=== PATIENT | female | born 1930 | race Caucasian/White ===

== ENCOUNTER → 2016-07-01 | Outpatient (CLI) | payer MEDICARE, BC ==
[~2016-07-01] MED LIST: AMBIEN 10MG10 MG PO; AMBIEN10 MG PO; AMIODARONE PO; ASPIR-LOW81 MG PO; ASPIRIN 81M81 MG/TA2 PO; ATIVAN 0.50.5 MG/TAB PO; ATIVAN0.5 MG PO; CARDIZEM CD180 MG PO; CARTIA XT120 MG PO; CEPHALEXIN500 M1 PO; COMBIVENT INH14.7 GM IH; CORDARONE200 MG PO; CORDARONE200 MG/TAB PO; ELIQUIS 5MG PO; LEXAPRO 10MG10 MG PO; LINZESS145CAP PO; LORTAB 5/500 501 TAB PO; MACROBID100 MG PO; MIRTAZAPINE15 M1 PO; MOTRIN 200200 MG/TAB PO; MULTAQ400 MG PO; NITROSTAT0.4 MG/TAB SL; NO HOME MEDICATIONS; PACERONE200 MG PO; PRISTIQ50 MG PO; REMERON15 MG PO; SPIRIVA INH IH; STOOL SOFTENER100 M2 PO; THEO-DUR200 MG PO; THEODUR 200MG; THEOPHYLLINE PO; TYLENOL 325MG325 MG PO; TYLENOL 500MG500 MG PO; ZOLOFT 50MG50 MG PO; ZOLPIDEM10 MG PO
[2016-07-01 10:39] LABS: MEAN CELL VOLUME 93 fl (80.0-100.0); MEAN CORPUSCULAR HGB CONC 30 g/dl (33.0-37.0); MEAN PLATELET VOLUME 11.1 fl (7.4-10.4); PLATELET COUNT 251 K/mm3 (130-400); RED BLOOD COUNT 3.69 M/mm3 (4.10-5.30); REDCELL DISTRIBUTION WIDTH-CV 15.8 % (11.5-14.5); WHITE BLOOD COUNT 5.9 K/mm3 (4.8-10.8)
[2016-07-01 10:50] LABS: HEMATOCRIT 34.2 % (37.0-47.0); HEMOGLOBIN 10.2 g/dl (12.5-16.0); MEAN CORPUSCULAR HEMOGLOBIN 28 pg (27.0-31.0)
== END ==
LOC: COL.LAB 09:54
PROVIDERS: Internal Medicine Interventional Cardiology
DX: K92.1 Melena (principal)

== ENCOUNTER → 2016-07-06 | Outpatient (CLI) | payer MEDICARE, BC ==
[2016-07-06 15:24] LABS: MEAN CELL VOLUME 93 fl (80.0-100.0); MEAN CORPUSCULAR HGB CONC 29 g/dl (33.0-37.0); MEAN PLATELET VOLUME 10.8 fl (7.4-10.4); PLATELET COUNT 283 K/mm3 (130-400); RED BLOOD COUNT 3.43 M/mm3 (4.10-5.30); REDCELL DISTRIBUTION WIDTH-CV 15.8 % (11.5-14.5); WHITE BLOOD COUNT 4.9 K/mm3 (4.8-10.8)
[2016-07-06 15:37] LABS: HEMOGLOBIN 9.4 g/dl (12.5-16.0); MEAN CORPUSCULAR HEMOGLOBIN 27 pg (27.0-31.0)
== END ==
LOC: COL.LAB 15:03
PROVIDERS: Internal Medicine Interventional Cardiology
DX: K92.1 Melena (principal)

== ENCOUNTER 2016-07-23 08:15 | Outpatient (CLI) | payer MEDICARE, BC ==
[~2016-07-23] VITALS: Ht 162.6 cm; Wt 55.5 kg
[2016-07-23] VITALS (11 sets, daily range): BP systolic 92–138; BP diastolic 52–97; PULSE 51–80; TEMP 97.5–98.6
[~2016-07-23 08:15] MED LIST changes: -CARTIA XT120 MG PO; -CORDARONE200 MG/TAB PO; -ELIQUIS 5MG PO; -LINZESS145CAP PO; -STOOL SOFTENER100 M2 PO; -TYLENOL 500MG500 MG PO; -ZOLOFT 50MG50 MG PO
[2016-07-23 08:44] LABS: MEAN CELL VOLUME 88 fl (80.0-100.0); MEAN CORPUSCULAR HGB CONC 29 g/dl (33.0-37.0); MEAN PLATELET VOLUME 11.4 fl (7.4-10.4); PLATELET COUNT 187 K/mm3 (130-400); REDCELL DISTRIBUTION WIDTH-CV 15.3 % (11.5-14.5); WHITE BLOOD COUNT 4.3 K/mm3 (4.8-10.8)
[2016-07-23 08:47] LABS: HEMATOCRIT 27.3 % (37.0-47.0); INR 1.3 (0.8-3.0); MEAN CORPUSCULAR HEMOGLOBIN 26 pg (27.0-31.0); PROTHROMBIN TIME 14.2 SECONDS (9.7-12.8)
[2016-07-23 08:52] LABS: CALCIUM 8.8 mg/dL (8.4-10.2); CREATININE, serum 0.6 mg/dL (0.52-1.25)
[2016-07-23] MEDS ORDERED: LINZESS145CAP PO (08:59)
[2016-07-23] MEDS ORDERED: CARTIA XT120 MG PO (09:01)
[2016-07-23] MEDS ORDERED: ZOLOFT 50MG50 MG PO (09:01)
[2016-07-23] MEDS ORDERED: ELIQUIS 5MG PO (09:01)
[2016-07-23] MEDS ORDERED: ATIVAN 0.50.5 MG/TAB PO (09:02)
[2016-07-23] MEDS ORDERED: TYLENOL 500MG500 MG PO (09:03)
[2016-07-23] MEDS ORDERED: STOOL SOFTENER100 M2 PO (09:03)
[2016-07-24 05:03] VITALS: BP 109/49; PULSE 66; TEMP 97.6
[2016-07-24 07:50] LABS: MEAN CELL VOLUME 89 fl (80.0-100.0); MEAN CORPUSCULAR HGB CONC 29 g/dl (33.0-37.0); PLATELET COUNT 170 K/mm3 (130-400); RED BLOOD COUNT 3.01 M/mm3 (4.10-5.30); REDCELL DISTRIBUTION WIDTH-CV 15.2 % (11.5-14.5); WHITE BLOOD COUNT 4.6 K/mm3 (4.8-10.8)
[2016-07-24 07:51] LABS: HEMATOCRIT 26.9 % (37.0-47.0); HEMOGLOBIN 7.8 g/dl (12.5-16.0); MEAN CORPUSCULAR HEMOGLOBIN 26 pg (27.0-31.0)
[2016-07-24 08:38] VITALS: BP 130/65; PULSE 65; TEMP 98.4
== END 2016-07-24 11:25 | disposition home or self-care (01) ==
LOC: EUO 08:15 → COL.RAD 08:30 → MEDICAL 13:33 → EUO 07-24 11:25
PROVIDERS: Internal Medicine Interventional Cardiology
DX: Z45.09 Encounter for adjustment and management of other cardiac device (principal); I48.91 Unspecified atrial fibrillation; R94.31 Abnormal electrocardiogram [ECG] [EKG]
CPT/HCPCS: OP; C1764; J2250; J3010; J7040

== ENCOUNTER → 2016-09-20 | Outpatient (CLI) | payer MEDICARE, BC ==
[~2016-09-20] MED LIST changes: +CARTIA XT120 MG PO; +CORDARONE200 MG/TAB PO; +ELIQUIS 5MG PO; +LINZESS145CAP PO; +STOOL SOFTENER100 M2 PO; +TYLENOL 500MG500 MG PO; +ZOLOFT 50MG50 MG PO
[2016-09-20 12:14] LABS: MEAN CELL VOLUME 78 fl (80.0-100.0); MEAN CORPUSCULAR HGB CONC 27 g/dl (33.0-37.0); MEAN PLATELET VOLUME 11.1 fl (7.4-10.4); PLATELET COUNT 267 K/mm3 (130-400); RED BLOOD COUNT 3.58 M/mm3 (4.10-5.30); REDCELL DISTRIBUTION WIDTH-CV 17.2 % (11.5-14.5); WHITE BLOOD COUNT 5.3 K/mm3 (4.8-10.8)
[2016-09-20 12:23] LABS: HEMOGLOBIN 7.5 g/dl (12.5-16.0); MEAN CORPUSCULAR HEMOGLOBIN 21 pg (27.0-31.0)
== END ==
LOC: COL.LAB 11:29
PROVIDERS: Internal Medicine Interventional Cardiology
DX: K92.1 Melena (principal)

== ENCOUNTER 2016-10-05 10:30 | Outpatient (RCR) | payer MEDICARE, BC ==
[2016-10-05] VITALS (9 sets, daily range): BP systolic 131–146; BP diastolic 58–81; PULSE 64–70; TEMP 97.6–98.3
[~2016-10-05 10:30] MED LIST changes: -CORDARONE200 MG/TAB PO
[2016-10-05] MEDS ORDERED: CORDARONE200 MG/TAB PO (11:33)
== END 2016-10-05 15:46 | disposition home or self-care (01) ==
LOC: EUO 10:30
DX: K92.2 Gastrointestinal hemorrhage, unspecified (principal); D50.0 Iron deficiency anemia secondary to blood loss (chronic)
CPT/HCPCS: J7050; P9016

== ENCOUNTER → 2016-11-22 | Outpatient (CLI) | payer MEDICARE, BC ==
[~2016-11-22] MED LIST changes: +CORDARONE200 MG/TAB PO
== END ==
LOC: BHSO 10:53
DX: F41.1 Generalized anxiety disorder (principal)

== ENCOUNTER → 2016-12-14 | Outpatient (CLI) | payer MEDICARE, BC | LOC: COL.RAD 13:07 | DX: K52.9 Noninfective gastroenteritis and colitis, unspecified (principal); K80.20 Calculus of gallbladder without cholecystitis without obstruction; K44.9 Diaphragmatic hernia without obstruction or gangrene | CPT/HCPCS: Q9967 ==

== ENCOUNTER → 2017-02-22 | Outpatient (CLI) | payer MEDICARE, BC ==
[~2017-02-22] MED LIST changes: +CLEOCIN HCL300 MG PO; +INCRUSE EL62.5 MCG/A IH; +INCRUSE EL62.5 MCG/A INH; +IPRATROPIUM BROM3 M1 IH; +MIRALAX PA17 GM/Dose PO; +NORCO 325 MG-51 TAB PO; +PERFOROMIS20 MCG/2 M IH; +PERFOROMIS20 MCG/2 M INH; +PREDNISONE20 MG PO; +PRILOSEC 20MG20 MG PO; +PULMICORT R1 MG/2 ML IH; +PULMICORT0.5 MG/2 M IH; +REMERON 15M15 MG/TA1 PO; +SENNO8.6 MG PO; +THEO-24 30300 MG/CAP PO
== END ==
LOC: BHSO 11:09
DX: F33.1 Major depressive disorder, recurrent, moderate (principal)

== ENCOUNTER 2017-03-25 15:38 | Outpatient (RCR) | payer MEDICARE, BC ==
[~2017-03-25 15:38] MED LIST changes: -CLEOCIN HCL300 MG PO; -INCRUSE EL62.5 MCG/A IH; -INCRUSE EL62.5 MCG/A INH; -IPRATROPIUM BROM3 M1 IH; -MIRALAX PA17 GM/Dose PO; -NORCO 325 MG-51 TAB PO; -PERFOROMIS20 MCG/2 M IH; -PERFOROMIS20 MCG/2 M INH; -PREDNISONE20 MG PO; -PRILOSEC 20MG20 MG PO; -PULMICORT R1 MG/2 ML IH; -PULMICORT0.5 MG/2 M IH; -REMERON 15M15 MG/TA1 PO; -SENNO8.6 MG PO; -THEO-24 30300 MG/CAP PO
[2017-03-26] VITALS (9 sets, daily range): BP systolic 106–124; BP diastolic 39–56; PULSE 61–73; TEMP 98.1–98.7
== END 2017-03-26 14:26 | disposition home or self-care (01) ==
LOC: MEDICAL 15:38 → EUO 15:38 → MEDICAL 03-26 08:37 → EUO 03-26 14:26
DX: K92.2 Gastrointestinal hemorrhage, unspecified (principal); D64.9 Anemia, unspecified
CPT/HCPCS: OP; J7050; P9016

== ENCOUNTER → 2017-05-23 | Outpatient (CLI) | payer MEDICARE, BC | LOC: BHSO 10:54 | DX: F33.1 Major depressive disorder, recurrent, moderate (principal) ==

== ENCOUNTER 2017-07-18 07:27 | Outpatient (RCR) | payer MEDICARE, BC ==
[~2017-07-18] VITALS: Ht 162.6 cm; Wt 58.1 kg
[2017-07-18 10:06] VITALS: BP 106/49; PULSE 67; TEMP 98.5
[2017-07-18 10:21] VITALS: BP 117/55; PULSE 69; TEMP 98.8
[2017-07-18 10:51] VITALS: BP 116/53; PULSE 64; TEMP 98.7
[2017-07-18 11:51] VITALS: BP 126/57; PULSE 61; TEMP 99.2
== END 2017-07-18 12:10 | disposition home or self-care (01) ==
LOC: EUO 07:27
DX: D64.9 Anemia, unspecified (principal)
CPT/HCPCS: J7050; P9016

== ENCOUNTER 2017-11-07 10:12 | Emergency (ER) | payer MEDICARE, BC ==
[~2017-11-07] VITALS: Ht 157.5 cm; Wt 57.3 kg
[~2017-11-07 10:12] MED LIST changes: +CLEOCIN HCL300 MG PO; +INCRUSE EL62.5 MCG/A IH; +IPRATROPIUM BROM3 M1 IH; +NORCO 325 MG-51 TAB PO; +PERFOROMIS20 MCG/2 M IH; +PREDNISONE20 MG PO; +PULMICORT R1 MG/2 ML IH; +REMERON 15M15 MG/TA1 PO; +SENNO8.6 MG PO
[2017-11-07 10:17] VITALS: TEMP 97.1
[2017-11-07 10:38] LABS: BASO % 0.3 % (0.0-2.0); GRAN # 8.6 (1.4-6.5); GRAN % 84.6 % (42.2-75.2); LYMPH # 0.6 (1.2-3.4); LYMPH % 6.1 % (20.0-51.0); MEAN CELL VOLUME 82 fl (80.0-100.0); MEAN CORPUSCULAR HGB CONC 27 g/dl (33.0-37.0); MEAN PLATELET VOLUME 9.9 fl (7.4-10.4); MONO # 0.8 (0.1-0.6); MONO % 8.1 % (1.7-9.3); PLATELET COUNT 253 K/mm3 (130-400); RED BLOOD COUNT 3.85 M/mm3 (4.10-5.30); REDCELL DISTRIBUTION WIDTH-CV 21.7 % (11.5-14.5)
[2017-11-07 10:39] LABS: HEMATOCRIT 31.4 % (37.0-47.0); HEMOGLOBIN 8.5 g/dl (12.5-16.0); MEAN CORPUSCULAR HEMOGLOBIN 22 pg (27.0-31.0)
[2017-11-07 10:42] LABS: PROTHROMBIN TIME 10.8 SECONDS (9.7-12.8)
[2017-11-07 10:44] LABS: PARTIAL THROMBOPLASTIN TIME 30.5 SECONDS (26.0-37.0)
[2017-11-07 10:56] LABS: ALANINE AMINOTRANSFERASE 24 U/L (9-52); ALBUMIN 3.3 gm/dL (3.5-5.0); ALKALINE PHOSPHATASE 91 U/L (50-136); ANION GAP 10 mmol/L (7-16); AST,SGOT 20 U/L (15-37); BILIRUBIN,TOTAL 0.5 mg/dL (0.0-1.0); BLOOD UREA NITROGEN 10 mg/dL (7-17); CALCIUM 8.7 mg/dL (8.4-10.2); CARBON DIOXIDE 32 mmol/L (22-30); CHLORIDE 96 mmol/L (98-107); CREATININE, serum 0.52 mg/dL (0.52-1.25); GLUCOSE 116 mg/dL (74-106); POTASSIUM 3.9 mmol/L (3.4-5.0); SODIUM 139 mmol/L (137-145); TOTAL PROTEIN 6.5 gm/dL (6.4-8.2)
[2017-11-07 11:00] LABS: TROPONIN-I < 0.012 ng/mL (0.000-0.034)
[2017-11-07] MEDS ORDERED: INCRUSE EL62.5 MCG/A IH (11:09)
[2017-11-07] MEDS ORDERED: PULMICORT0.5 MG/2 M IH (11:15)
[2017-11-07 13:46] VITALS: BP 109/62; PULSE 81
== END 2017-11-07 13:48 | disposition home or self-care (01) ==
LOC: COL.ER 10:12
PROVIDERS: Emergency Medicine
DX: I48.91 Unspecified atrial fibrillation (principal); J44.9 Chronic obstructive pulmonary disease, unspecified; D64.9 Anemia, unspecified; R91.8 Other nonspecific abnormal finding of lung field; M54.5 Low back pain
CPT/HCPCS: J1940; J7030

== ENCOUNTER → 2017-11-09 | Outpatient (CLI) | payer MEDICARE, BC ==
[~2017-11-09] MED LIST changes: +PULMICORT0.5 MG/2 M IH
== END ==
LOC: COL.VAS 10:30
DX: M79.89 Other specified soft tissue disorders (principal)

== ENCOUNTER → 2017-11-16 | Outpatient (CLI) | payer MEDICARE, BC ==
[2017-11-16 11:45] LABS: ARTERIAL BLD GAS O2 SATURATION 94.5 % (92-100); ARTERIAL BLD GAS TCO2 CT 33.4; ARTERIAL BLOOD GAS BASE EXCESS 7.6 (-2-2); ARTERIAL BLOOD GAS PCO2 44.7 mmHg (35-45); ARTERIAL BLOOD GAS PO2 70.5 mmHg (80-100); ARTERIAL BLOOD GAS pH 7.47 (7.35-7.45)
== END ==
LOC: COL.PUL 11:20
PROVIDERS: Internal Medicine Pulmonary Disease
DX: R06.02 Shortness of breath (principal)

== ENCOUNTER 2017-12-19 12:32 | Inpatient (IN) | payer MEDICARE, BC ==
[2017-12-19] VITALS (190 sets, daily range): BP systolic 79–99; BP diastolic 32–56; PULSE 78–97; TEMP 98.7–99.7; O2SAT 58–99
[~2017-12-19] VITALS: Ht 157.5 cm; Wt 59.2 kg
[2017-12-19] MEDS ORDERED: MIRALAX PA17 GM/Dose PO (13:03)
[2017-12-19 13:04] LABS: MEAN CELL VOLUME 80 fl (80.0-100.0); MEAN CORPUSCULAR HGB CONC 26 g/dl (33.0-37.0); MEAN PLATELET VOLUME 9.5 fl (7.4-10.4); PLATELET COUNT 291 K/mm3 (130-400); RED BLOOD COUNT 3.59 M/mm3 (4.10-5.30); REDCELL DISTRIBUTION WIDTH-CV 18.6 % (11.5-14.5)
[2017-12-19] MEDS ORDERED: PERFOROMIS20 MCG/2 M INH (13:04)
[2017-12-19] MEDS ORDERED: INCRUSE EL62.5 MCG/A INH (13:05)
[2017-12-19 13:07] LABS: HEMATOCRIT 28.8 % (37.0-47.0); HEMOGLOBIN 7.6 g/dl (12.5-16.0); MEAN CORPUSCULAR HEMOGLOBIN 21 pg (27.0-31.0)
[2017-12-19] MEDS ORDERED: THEO-24 30300 MG/CAP PO (13:08)
[2017-12-19] MEDS ORDERED: PRILOSEC 20MG20 MG PO (13:08)
[2017-12-19 13:11] LABS: ARTERIAL BLD GAS O2 SATURATION 84.5 % (92-100); ARTERIAL BLD GAS TCO2 CT 29.4; ARTERIAL BLOOD GAS BASE EXCESS 2.7 (-2-2); ARTERIAL BLOOD GAS PCO2 46.8 mmHg (35-45); ARTERIAL BLOOD GAS pH 7.39 (7.35-7.45)
[2017-12-19 13:12] LABS: ARTERIAL BLOOD GAS PO2 48.3 mmHg (80-100)
[2017-12-19 13:15] LABS: ALBUMIN 2.8 gm/dL (3.5-5.0); BILIRUBIN,TOTAL 0.9 mg/dL (0.0-1.0); CREATININE, serum 0.78 mg/dL (0.52-1.25); TOTAL PROTEIN 5.4 gm/dL (6.4-8.2)
[2017-12-19 13:40] LABS: BAND 19 % (0-10); LYMPHOCYTE 3 % (20.0-51.0); NEUTROPHILS 77 % (42.0-75.2)
[2017-12-19 13:41] LABS: COLLECTION METHOD CLEAN CATCH
[2017-12-19 13:45] LABS: HYPOCHROMIA 3+; POLYCHROMASIA 1+
[2017-12-19 13:46] LABS: MICROCYTOSIS 1+
[2017-12-19 14:01] LABS: HYALINE CAST >12 /lpf; MUCOUS Present /lpf; PH 7 (5-8); SQUAMOUS EPITHELIAL None Seen /hpf; URINE APPEARANCE Clear; URINE BACTERIA Rare /hpf; URINE BILIRUBIN Negative (NEGATIVE); URINE BLOOD 2+ (NEGATIVE); URINE COLOR Yellow; URINE GLUCOSE Negative (NEGATIVE); URINE KETONE Negative (NEGATIVE); URINE LEUKOCYTE ESTERASE 2+ (NEGATIVE); URINE NITRATE Negative (NEGATIVE); URINE PROTEIN(semi-quant) 2+ (NEGATIVE); URINE UROBILINOGEN Negative (NEGATIVE)
[2017-12-19 19:16] LABS: ARTERIAL BLD GAS TCO2 CT 26.5; ARTERIAL BLOOD GAS BASE EXCESS -0.3 (-2-2); ARTERIAL BLOOD GAS HCO3 25.1 meq/L (22-26); ARTERIAL BLOOD GAS PCO2 45.2 mmHg (35-45); ARTERIAL BLOOD GAS PO2 63.9 mmHg (80-100); ARTERIAL BLOOD GAS pH 7.36 (7.35-7.45)
[2017-12-20] VITALS (11 sets, daily range): BP systolic 79–129; BP diastolic 44–68; PULSE 73–86; TEMP 97.7–99.9
[2017-12-20 02:47] LABS: HEMATOCRIT 23.7 % (37.0-47.0); HEMOGLOBIN 6.3 g/dl (12.5-16.0)
[2017-12-20 07:33] LABS: MEAN CELL VOLUME 82 fl (80.0-100.0); MEAN CORPUSCULAR HGB CONC 28 g/dl (33.0-37.0); MEAN PLATELET VOLUME 10.6 fl (7.4-10.4); PLATELET COUNT 206 K/mm3 (130-400); RED BLOOD COUNT 3.49 M/mm3 (4.10-5.30)
[2017-12-20 07:38] LABS: HEMATOCRIT 28.6 % (37.0-47.0); MEAN CORPUSCULAR HEMOGLOBIN 23 pg (27.0-31.0)
[2017-12-20 07:40] LABS: CREATININE, serum 0.7 mg/dL (0.52-1.25); MAGNESIUM 1.7 mg/dL (1.6-2.3); POTASSIUM 4.1 mmol/L (3.4-5.0)
[2017-12-20 09:22] LABS: BAND 28 % (0-10); EOSINOPHIL 1 % (0-4); LYMPHOCYTE 3 % (20.0-51.0); NEUTROPHILS 65 % (42.0-75.2); PLATELET ESTIMATE NORMAL (NORMAL)
[2017-12-20 09:23] LABS: HYPOCHROMIA 3+
== END 2017-12-20 19:00 | disposition expired | DRG 871 ==
LOC: COL.ER 12:32 → ICU 13:20
PROVIDERS: Family Medicine; Internal Medicine Pulmonary Disease; Physician Assistant
PROC: 02HV33Z Insertion of Infusion Device into Superior Vena Cava, Percutaneous Approach (ICD-10-PCS; principal; 2017-12-19)
DX: A41.9 Sepsis, unspecified organism (principal); R65.21 Severe sepsis with septic shock; J18.9 Pneumonia, unspecified organism; J96.21 Acute and chronic respiratory failure with hypoxia; Z66 Do not resuscitate; Z51.5 Encounter for palliative care; N10 Acute pyelonephritis; E46 Unspecified protein-calorie malnutrition; E87.2 Acidosis; N13.6 Pyonephrosis; B96.4 Proteus (mirabilis) (morganii) as the cause of diseases classified elsewhere; J44.9 Chronic obstructive pulmonary disease, unspecified; I12.9 Hypertensive chronic kidney disease with stage 1 through stage 4 chronic kidney disease, or unspecified chronic kidney disease; E11.22 Type 2 diabetes mellitus with diabetic chronic kidney disease; E87.6 Hypokalemia; N18.3 Chronic kidney disease, stage 3 (moderate); I48.91 Unspecified atrial fibrillation; Z87.891 Personal history of nicotine dependence
CPT/HCPCS: 99223-AI; 99238; A4314; C1751; C1894; C9113; J0692; J0696; J1956; J2060; J2270; J3370; J3475; J3480; J7030; J7050; J7060; P9016; Q9967